=== PATIENT | female | born 1990 | race Caucasian/White ===

== ENCOUNTER 2017-01-03 15:25 | Inpatient (IN) | payer MEDICAID ==
[~2017-01-03] VITALS: Ht 160 cm; Wt 92.0 kg
[2017-01-14] MEDS ORDERED: OXYTOCIN 30U/ 0.9% NaCL 500ML 500 ML IV PRN (20:19)
[2017-01-14] MEDS ORDERED: OXYTOCIN 30U/ 0.9% NaCL 500ML 500 ML IV ONE (20:19)
[2017-01-14 20:21] VITALS: BP 124/61
[2017-01-14] MEDS ORDERED: ONDANSETRON 2MG/ML, 2ML IVPush PRN (20:30)
[2017-01-14] MEDS ORDERED: FENTANYL PF 100 MCG/2ML IV PRN (20:30)
[2017-01-14] MEDS ORDERED: TERBUTALINE 1 MG/ML, 1ML IVPush PRN (20:30)
[2017-01-14] MEDS ORDERED: CALCIUM CARBONATE 500 MG TAB.CHEW PO PRN (20:30)
[2017-01-14] MEDS ORDERED: NEWBORN KIT ONE (20:55)
[2017-01-14] MEDS ORDERED: MISOPROSTOL 25 MCG TABLET ONE (20:55)
[2017-01-14] MEDS: MISOPROSTOL 25 MCG TABLET VG PRN (21:00)
[2017-01-15] MEDS: LACTATED RINGERS 1,000 ML IV SCH ×6 (01:05→19:06)
[2017-01-15] MEDS ORDERED: MISOPROSTOL 25 MCG TABLET ONE (01:56)
[2017-01-15] MEDS: MISOPROSTOL 25 MCG TABLET VG PRN (02:00)
[2017-01-15] MEDS ORDERED: FENTANYL PF 100 MCG/2ML ONE ×4 (04:18→21:19)
[2017-01-15] MEDS: FENTANYL PF 100 MCG/2ML IVPush PRN ×3 (04:23→09:35)
[2017-01-15] MEDS ORDERED: FENTANYL/BUPIV./NS/PF 250 ML EPIDCONT ONE (11:19)
[2017-01-15] MEDS: D5%-LACTATED RINGERS 1,000 ML IV SCH ×3 (11:26→20:19)
[2017-01-15] MEDS ORDERED: FENTANYL/BUPIV./NS/PF 250 ML EPIDCONT SCH (12:10)
[2017-01-15] MEDS ORDERED: OXYTOCIN 30U/ 0.9% NaCL 500ML 500 ML ONE (12:11)
[2017-01-15] MEDS ORDERED: OXYTOCIN 30U/ 0.9% NaCL 500ML 500 ML IV PRN (12:12)
[2017-01-15] MEDS ORDERED: LACTATED RINGERS 1,000 ML IVBOLUS PRN (12:30)
[2017-01-15] MEDS ORDERED: MISOPROSTOL 200 MCG TABLET ONE (14:34)
[2017-01-15] MEDS ORDERED: LIDOCAINE 1%, 20ML ONE (14:34)
[2017-01-15] MEDS ORDERED: EPHEDRINE 50 MG/ML, 1ML ONE (15:44)
[2017-01-15] MEDS ORDERED: ACETAMINOPHEN 325 MG TABLET ONE (18:54)
[2017-01-15] MEDS ORDERED: ACETAMINOPHEN 325 MG TABLET PO PRN (19:00)
[2017-01-16] MEDS ORDERED: FENTANYL PF 100 MCG/2ML ONE (00:06)
[2017-01-16] MEDS: FENTANYL PF 100 MCG/2ML IVPush PRN (00:09)
[2017-01-16] MEDS: OXYTOCIN 30U/ 0.9% NaCL 500ML 500 ML IV SCH ×2 (02:39→12:39)
[2017-01-16] MEDS ORDERED: OXYTOCIN 30U/ 0.9% NaCL 500ML 500 ML ONE (02:50)
[2017-01-16] MEDS ORDERED: ONDANSETRON 2MG/ML, 2ML IV PRN (03:00)
[2017-01-16] MEDS ORDERED: ACETAMINOPHEN 325 MG TABLET PO PRN (03:00)
[2017-01-16] MEDS ORDERED: MISOPROSTOL 200 MCG TABLET PO PRN (03:00)
[2017-01-16] MEDS ORDERED: HYDROcodone/APAP 5/325 TABLET PO PRN (03:00)
[2017-01-16] MEDS ORDERED: CALCIUM CARBONATE 500 MG TAB.CHEW PO PRN (03:00)
[2017-01-16] MEDS: LACTATED RINGERS 1,000 ML IV SCH ×3 (04:10→12:10)
[2017-01-16] MEDS: D5%-LACTATED RINGERS 1,000 ML IV SCH (04:19)
[2017-01-16] MEDS ORDERED: IBUPROFEN 600 MG TABLET ONE (04:37)
[2017-01-16 05:30] VITALS: BP 116/69
[2017-01-16 08:50] VITALS: BP 107/67
[2017-01-16] MEDS: PRENATAL VIT/IRON/FA 1 EACH TABLET PO SCH (08:50)
[2017-01-16] MEDS: DOCUSATE 100 MG CAPSULE PO PRN ×2 (08:50→23:58)
[2017-01-16] MEDS: IBUPROFEN 600 MG TABLET PO PRN ×3 (11:07→23:59)
[2017-01-16 11:53] LABS: DIFF TOTAL CELLS COUNTED 100 CELL DIFF
[2017-01-16 11:55] LABS: LARGE PLATELETS 1+
[2017-01-16 11:56] LABS: VERIFY COUNTS? YES
[2017-01-16 16:20] VITALS: BP 106/50
[2017-01-16] MEDS ORDERED: DIPH,PERTUSS(ACELL),TET VAC/PF NC IM-VACC ONE ×2 (17:07→17:30)
[2017-01-16 21:00] VITALS: BP 109/55
[2017-01-17] VITALS: BP 113/62
[2017-01-17] MEDS: IBUPROFEN 600 MG TABLET PO PRN ×3 (06:08→19:21)
[2017-01-17] MEDS: HYDROcodone/APAP 5/325 TABLET PO PRN ×3 (06:35→19:21)
[2017-01-17 07:40] VITALS: BP 95/46
[2017-01-17] MEDS: DOCUSATE 100 MG CAPSULE PO PRN ×2 (08:47→19:21)
[2017-01-17] MEDS: PRENATAL VIT/IRON/FA 1 EACH TABLET PO SCH (08:47)
[2017-01-17 19:44] VITALS: BP 121/74
[2017-01-18] MEDS: HYDROcodone/APAP 5/325 TABLET PO PRN ×2 (01:38→08:45)
[2017-01-18] MEDS: IBUPROFEN 600 MG TABLET PO PRN ×2 (01:38→08:45)
[2017-01-18 07:23] VITALS: BP 112/76
[2017-01-18] MEDS: DOCUSATE 100 MG CAPSULE PO PRN (08:44)
[2017-01-18] MEDS: PRENATAL VIT/IRON/FA 1 EACH TABLET PO SCH (08:44)
[2017-01-18] MEDS ORDERED: IBUP-1222 PO (10:46)
[2017-01-18] MEDS ORDERED: HYDR-3240 PO (10:47)
[2017-01-18] MEDS ORDERED: DOCU-30 PO (10:47)
== END 2017-01-18 13:14 | disposition home or self-care (01) | DRG 775 ==
LOC: LDIP 01-14 20:15 → 2NW 01-16 04:56
PROVIDERS: ADMIT Student in an Organized Health Care Education/Training Program; ATTEND Student in an Organized Health Care Education/Training Program
PROC: 10E0XZZ Delivery of Products of Conception, External Approach (ICD-10-PCS; principal; 2017-01-16)
PROC: 10907ZC Drainage of Amniotic Fluid, Therapeutic from Products of Conception, Via Natural or Artificial Opening (ICD-10-PCS; 2017-01-16)
PROC: 0HQ9XZZ Repair Perineum Skin, External Approach (ICD-10-PCS; 2017-01-16)
PROC: 00HU33Z Insertion of Infusion Device into Spinal Canal, Percutaneous Approach (ICD-10-PCS; 2017-01-16)
PROC: 3E0R3CZ (ICD-10-PCS; 2017-01-16)
DX: O48.0 Post-term pregnancy (principal); Z37.0 Single live birth; Z3A.41 41 weeks gestation of pregnancy; O99.214 Obesity complicating childbirth; E66.9 Obesity, unspecified; O76 Abnormality in fetal heart rate and rhythm complicating labor and delivery; O77.0 Labor and delivery complicated by meconium in amniotic fluid; Z68.35 Body mass index [BMI] 35.0-35.9, adult; Z23 Encounter for immunization; O70.0 First degree perineal laceration during delivery
CPT/HCPCS: 36415; 82803; 85014; 85025; 86850; 86900; 90715; J3010; J2590; J7120; J7121

== ENCOUNTER 2018-12-11 13:07 | Emergency (ER) | payer MEDICAID ==
[~2018-12-11] VITALS: Ht 160 cm; Wt 79.2 kg
[~2018-12-11 13:07] MED LIST: DOCU-131 PO; HYDR-3240 PO; IBUP-1222 PO
[2018-12-11] MEDS ORDERED: SODIUM CHLORIDE FLUSH 10ML SYR IVF ONE (13:30)
[2018-12-11 13:58] LABS: ALANINE AMINOTRANSFERASE 28 U/L (12-78); ALBUMIN 3.8 g/dL (3.4-5.0); ANION GAP 6 mmol/L (5-15); CALCIUM 8.8 mg/dL (8.5-10.1); CHLORIDE 105 mmol/L (98-107)
[2018-12-11 14:01] LABS: ALKALINE PHOSPHATASE 103 U/L (45-117); BILIRUBIN,TOTAL 0.7 mg/dL (0.2-1.0); CREATININE 0.91 mg/dL (0.55-1.02); TOTAL PROTEIN 8.3 g/dL (6.4-8.2)
[2018-12-11 14:02] LABS: BASOPHILS # (AUTO) 0.06 x10^3/uL (0-0.1); BASOPHILS % (AUTO) 1 % (0-1); EOSINOPHILS # (AUTO) 0.22 x10^3/uL (0-0.4); EOSINOPHILS % (AUTO) 2 % (1-7); LYMPHOCYTES # (AUTO) 2.65 x10^3/uL (1-3.4); LYMPHOCYTES % (AUTO) 23 % (22-44); MD NO; MEAN CORPUSCULAR HEMOGLOBIN 28.6 pg (27.0-34.8); MEAN CORPUSCULAR HGB CONC 33.9 g/dL (32.4-35.8); MEAN CORPUSCULAR VOLUME 84.3 fL (80-100); MEAN PLATELET VOLUME 9.4 fL (7.4-10.4); MONOCYTES # (AUTO) 0.66 x10^3/uL (0.2-0.8); MONOCYTES % (AUTO) 6 % (2-9); NEUTROPHILS # (AUTO) 8.15 x10^3/uL (1.8-6.8); NEUTROPHILS % (AUTO) 69 % (42-75); PLATELET COUNT 302 x10^3/uL (130-400); RED BLOOD COUNT 5.32 x10^6/uL (3.82-5.3); RED CELL DISTRIBUTION WIDTH 13.6 % (9.6-15.2)
--- NOTE | 2018-12-11 15:25 | NUR ---
[employer]: PT TO ROOM FROM [facility].
[2018-12-11 16:33] LABS: HCG UR SG 1.015 (1.003-1.030); MICROSCOPIC AUTO
[2018-12-11 16:34] LABS: CULTURE INDICATED? YES
[2018-12-11 18:02] VITALS: BP 131/75
== END 2018-12-11 18:03 | disposition home or self-care (01) ==
LOC: ED 15:40
DX: N30.00 Acute cystitis without hematuria (principal); R11.2 Nausea with vomiting, unspecified
CPT/HCPCS: 36415; 76700; 80053; 81001; 81025; 83690; 85025; 87077; 87086; 99284